=== PATIENT | female | born 1960 | race Caucasian/White ===

== ENCOUNTER 2017-01-10 08:40 | Outpatient (CLI) | payer OTHER ==
--- NOTE | 2017-01-10 11:09 | DIAGNOSTIC IMAGING REPORT ---
PROCEDURE: MR LOWER EXT JOINT WO CONT-RT INDICATION: RT FIBULAR FX TECHNIQUE: T1 and STIR sagittal, axial, coronal and coronal-oblique images. COMPARISON: None. FINDINGS: Healing oblique fracture of the distal fibula. Bone contusion of the talus and calcaneus on both sides of the subtalar joint posterior facet. There is also minor bone contusion of the navicular, cuboid, middle and lateral cuneiforms. Normal Achilles tendon. Normal plantar fascia. Normal sinus tarsi. Tibiofibular, anterior and posterior talofibular and deltoid ligaments are intact. Partial tear of the calcaneofibular ligament. Small area of increased signal of the peroneus brevis tendon suggestive of a split tear. Peroneus longus, flexor hallucis longus, posterior tibialis and flexor digitorum longus tendons are intact. Normal extensor tendons. IMPRESSION: 1. Healing fracture of the distal fibula 2. Bone contusion/occult fractures of the talus and calcaneus primarily around the posterior facet of the subtalar joint. Minor bone contusion of the navicular, cuboid, middle and lateral cuneiforms 3. Partial tear of the calcaneofibular ligament 4. Findings suggestive of a longitudinal split tear of the peroneus brevis tendon
== END 2017-01-10 23:00 ==
LOC: MRI SRH 08:40
DX: S82.831D Other fracture of upper and lower end of right fibula, subsequent encounter for closed fracture with routine healing (principal); S90.01XD Contusion of right ankle, subsequent encounter; S93.412D Sprain of calcaneofibular ligament of left ankle, subsequent encounter